=== PATIENT | male | born 1990 | race Caucasian/White ===

== ENCOUNTER 2018-03-30 11:32 | Emergency (ER) | payer OTHER ==
[2018-03-30 11:39] VITALS: BP 120/65; PULSE 87; TEMP 98; BMI 26.6
--- NOTE | 2018-03-30 13:21 | PDOC ---
History of Present Illness - General Chief Complaint: Back Pain Stated Complaint: BACK PAIN Time Seen by Provider: 03/30/18 13:11 History Source: Patient - History of Present Illness Initial Comments: 03/30/18 15:08 Chief complaint: Back injury Patient is a healthy 27-year-old male who pushed something yesterday and now has lower back pain. No numbness or pain in the legs. No incontinence or saddle anesthesia. Patient is ambulatory and took 2 Advil last night, no medication today. GENERAL/CONSTITUTIONAL: No fever, weakness. dizziness HEAD, EYES, EARS, NOSE AND THROAT: No change in vision. No ear pain or discharge. No sore throat. CARDIOVASCULAR: No chest pain RESPIRATORY: No shortness of breath or cough GASTROINTESTINAL: No pain, nausea, vomiting, diarrhea or constipation GENITOURINARY: No dysuria MUSCULOSKELETAL: No neck +back pain SKIN: No rash NEUROLOGIC: No headache, vertigo, loss of consciousness, or loss of sensation. Clinically fingerGENERAL: The patient is awake, alert, and fully oriented, in no acute distress. HEAD: Normal with no signs of trauma. EYES: Pupils equal, round and reactive to light, sclera anicteric, conjunctiva clear. ENT: pharynx: no erythema, no exudate, uvula midline NECK: supple CHEST: clear, nontender, rr ABD: soft, nontender Back: No spinal tenderness, has general lower back tenderness EXTREMITIES: Normal range of motion, no edema. Strength 5 out of 5 bilaterally, neurovascular intact NEUROLOGICAL: Normal speech, normal gait. SKIN: Warm, Dry Past History - Past Medical History Allergies/Adverse Reactions: Allergies Allergy/AdvReac Type Severity Reaction Status Date / Time No Known Allergies Allergy Verified 03/30/18 11:35 Home Medications: Ambulatory Orders Oxycodone HCl/Acetaminophen [Percocet 5-325 mg Tablet] 1 tab PO Q4H #20 tablet MDD 6 03/30/18 CVA: No COPD: No - Suicide/Smoking/Psychosocial Hx Smoking History: Never smoked Have you smoked in the past 12 months: No Information on smoking cessation initiated: No Hx Alcohol Use: No Drug/Substance Use Hx: No Substance Use Type: None *Physical Exam - Vital Signs Last Vital Signs Temp Pulse Resp BP Pulse Ox 98.0 F 87 18 120/65 100 03/30/18 11:37 03/30/18 11:37 03/30/18 11:37 03/30/18 11:37 03/30/18 11:37 Medical Decision Making - Medical Decision Making 03/30/18 15:14 Patient with lower back pain after pushing something yesterday. No numbness, weakness, incontinence or saddle anesthesia. No indication for imaging. We'll give Toradol and reassess and if not better will give a few days of Percocet and orthopedic follow-up. *DC/Admit/Observation/Transfer Diagnosis at time of Disposition: Back injury Qualifiers: Encounter type: initial encounter Qualified Code(s): S39.92XA - Unspecified injury of lower back, initial encounter - Discharge Dispostion Disposition: HOME Condition at time of disposition: Stable Decision to Admit order: No - Prescriptions Prescriptions: Oxycodone HCl/Acetaminophen [Percocet 5-325 mg Tablet] 1 tab PO Q4H #20 tablet MDD 6 - Referrals Referrals: Obinna Boo MD [Staff Physician] - - Patient Instructions Printed Discharge Instructions: DI for Low Back Pain Additional Instructions: No heavy lifting or bending Apply ice to the area 20 minutes every 2 hours for the next 2 days Continue taking Motrin 600 mg every 6 hours for pain. If still in pain he can also take Percocet one tablet every 4 hours. Return to the nearest ER if numbness, weakness, severe pain, problems with urinating or having bowel movements. Call orthopedist today for an appointment for further evaluation Print Language: NIGERIEN - Post Discharge Activity Forms/Work/School Notes: Back to Work
[2018-03-30] MEDS ORDERED: KETOROLAC TROMETHAMINE 60 MG/2 ML VIAL IM ONE (13:27)
[2018-03-30] MEDS ORDERED: KETOROLAC TROMETHAMINE 60 MG/2 ML VIAL ONE (13:30)
== END 2018-03-30 14:24 | disposition home or self-care (01) ==
LOC: JERFT 11:32
PROC: 3E0233Z Introduction of Anti-inflammatory into Muscle, Percutaneous Approach (ICD-10-PCS; principal; 2018-03-30)
DX: S39.82XA Other specified injuries of lower back, initial encounter (principal); X50.9XXA Other and unspecified overexertion or strenuous movements or postures, initial encounter; Y93.89 Activity, other specified; Y92.89 Other specified places as the place of occurrence of the external cause; Y99.8 Other external cause status
CPT/HCPCS: 99281-25

== ENCOUNTER 2019-07-17 10:59 | Emergency (ER) | payer OTHER ==
[2019-07-17 11:09] VITALS: BP 132/71; PULSE 66; TEMP 97.3; BMI 27.3
[2019-07-17] MEDS ORDERED: TETRACAINE 0.5% OPHTH SOLN 2 ML BOTTLE ONE (11:42)
[2019-07-17] MEDS ORDERED: FLUORESCEIN NA 1 EA STRIP ONE (11:42)
--- NOTE | 2019-07-17 12:36 | PDOC ---
History of Present Illness - General Chief Complaint: Foreign Body (FB) Stated Complaint: EYE INJURY AT WORK - History of Present Illness Initial Comments: 07/17/19 12:31 28 y/o M w/o CM presents for evaluation of L eye irritation x 5 days. He states he was sanding a wall when he felt dust enter his eye, since that time he has L eye irritation without changes in vision of systemic symptoms or discharge. Past History - Past Medical History Allergies/Adverse Reactions: Allergies Allergy/AdvReac Type Severity Reaction Status Date / Time No Known Allergies Allergy Verified 07/17/19 11:09 Home Medications: Ambulatory Orders Oxycodone HCl/Acetaminophen [Percocet 5-325 mg Tablet] 1 tab PO Q4H #20 tablet MDD 6 03/30/18 Tobramycin 0.3% Ophth Soln [Tobrex Ophthalmic Solution -] 1 drop OS Q4HWA #1 bottle 07/17/19 CVA: No COPD: No - Immunization History Immunization Up to Date: Yes - Suicide/Smoking/Psychosocial Hx Smoking History: Never smoked Have you smoked in the past 12 months: No Information on smoking cessation initiated: No Hx Alcohol Use: No Drug/Substance Use Hx: No Substance Use Type: None Review of Systems - Review of Systems HEENTM: Yes: See HPI, Tearing. No: Eye Pain, Blurred Vision *Physical Exam - Vital Signs Last Vital Signs Temp Pulse Resp BP Pulse Ox 97.3 F L 66 17 132/71 99 07/17/19 11:05 07/17/19 11:05 07/17/19 11:05 07/17/19 11:05 07/17/19 11:05 - Physical Exam Comments: 07/17/19 12:32 L eye conjuntival injection, PERLL EOMI, tetracaine and floricine using blue light, no CA seen Medical Decision Making - Medical Decision Making 07/17/19 12:33 I will treat this as a corneal abrasion with tobramycin and have pt f/u with optomology. *DC/Admit/Observation/Transfer Diagnosis at time of Disposition: Corneal abrasion - Discharge Dispostion Disposition: HOME Condition at time of disposition: Stable Decision to Admit order: No - Referrals - Patient Instructions Printed Discharge Instructions: Corneal Abrasion, DI for Corneal Abrasion Additional Instructions: Please use the antibiotic drops as directed and without fail, follow up with optomology in 1-2 days for further evaluation and treatment options, return to the emergency room should symptoms worsen. - Post Discharge Activity
== END 2019-07-17 12:47 | disposition home or self-care (01) ==
LOC: JERFT 10:59
DX: S05.02XA Injury of conjunctiva and corneal abrasion without foreign body, left eye, initial encounter (principal); T15.82XA Foreign body in other and multiple parts of external eye, left eye, initial encounter; W29.8XXA Contact with other powered hand tools and household machinery, initial encounter; Y93.H9 Activity, other involving exterior property and land maintenance, building and construction; Y92.118 Other place in children's home and orphanage as the place of occurrence of the external cause; Y99.0 Civilian activity done for income or pay
CPT/HCPCS: 99281-25

== ENCOUNTER 2019-08-20 19:20 | Emergency (ER) | payer OTHER ==
[2019-08-20 19:41] VITALS: BP 140/74; PULSE 73; TEMP 98.7; BMI 29.1
[2019-08-20] MEDS ORDERED: FLUORESCEIN NA 1 EA STRIP ONE (21:32)
[2019-08-20] MEDS ORDERED: TETRACAINE 0.5% OPHTH SOLN 2 ML BOTTLE ONE (21:32)
--- NOTE | 2019-08-20 21:50 | PDOC ---
History of Present Illness - General Chief Complaint: Eye Problem Stated Complaint: PINK EYE Time Seen by Provider: 08/20/19 21:28 - History of Present Illness Initial Comments: 08/20/19 21:45 29-year-old male without comorbidities presents for evaluation of left eye irritation which occurred while cutting some tile. This occurred today. Past History - Past Medical History Allergies/Adverse Reactions: Allergies Allergy/AdvReac Type Severity Reaction Status Date / Time No Known Allergies Allergy Verified 08/20/19 19:38 Home Medications: Ambulatory Orders Oxycodone HCl/Acetaminophen [Percocet 5-325 mg Tablet] 1 tab PO Q4H #20 tablet MDD 6 03/30/18 Tobramycin 0.3% Ophth Soln [Tobrex Ophthalmic Solution -] 1 drop OS Q4HWA #1 bottle 07/17/19 Tobramycin 0.3% Ophth Soln [Tobrex Ophthalmic Solution -] 1 drop OS Q4HWA 5 Days #1 bottle 08/20/19 CVA: No COPD: No - Immunization History Immunization Up to Date: Yes - Psycho Social/Smoking Cessation Hx Smoking History: Never smoked Have you smoked in the past 12 months: No Hx Alcohol Use: No Drug/Substance Use Hx: No Substance Use Type: None Review of Systems - Review of Systems HEENTM: Yes: Eye Pain, Tearing *Physical Exam - Vital Signs Last Vital Signs Temp Pulse Resp BP Pulse Ox 98.7 F 73 18 140/74 98 08/20/19 19:38 08/20/19 19:38 08/20/19 19:38 08/20/19 19:38 08/20/19 19:38 - Physical Exam Comments: 08/20/19 21:46 Tetracaine was instilled in the left eye, the left eye was then stained with floor seen. There are multiple corneal abrasions without indication of foreign body Medical Decision Making - Medical Decision Making 08/20/19 21:46 Tobramycin for corneal abrasions follow-up with ophthalmology in 1 to 2 days without fail Discharge - Discharge Information Problems reviewed: Yes Clinical Impression/Diagnosis: Corneal abrasion Condition: Stable Disposition: HOME - Admission No - Additional Discharge Information Prescriptions: Tobramycin 0.3% Ophth Soln [Tobrex Ophthalmic Solution -] 1 drop OS Q4HWA 5 Days #1 bottle - Follow up/Referral Referrals: Saturnino Fiore MD [Staff Physician] - - Patient Discharge Instructions Additional Instructions: Please use the antibiotic drops as directed. Return to the emergency room for worsening symptoms. Without fail, please follow-up with ophthalmology in 1 to 2 days for further evaluation and treatment options. - Post Discharge Activity
== END 2019-08-20 22:04 | disposition home or self-care (01) ==
LOC: JERFT 19:20
DX: S05.02XA Injury of conjunctiva and corneal abrasion without foreign body, left eye, initial encounter (principal); W31.89XA Contact with other specified machinery, initial encounter; Y93.89 Activity, other specified; Y92.89 Other specified places as the place of occurrence of the external cause; Y99.0 Civilian activity done for income or pay
CPT/HCPCS: 99281-25

== ENCOUNTER 2024-01-30 09:04 | Emergency (ER) | payer OTHER ==
[2024-01-30 09:07] VITALS: RESP 18; TEMP 97.9; BMI 25.4
[2024-01-30] MEDS ORDERED: ACETAMINOPHEN INJECTION 100 ML IVPB ONE (09:34)
[2024-01-30] MEDS ORDERED: FAMOTIDINE 20 MG/50 ML IVPB 20 MG/50 ML MG IVPB ONE (09:34)
[2024-01-30] MEDS: FAMOTIDINE 20 MG/50 ML IVPB 20 MG/50 ML MG IVPB ONE (09:38)
[2024-01-30] MEDS: SODIUM CHLORIDE 0.9% 1000 ML INFUS.BAG IV ONE (09:38)
[2024-01-30] MEDS: ACETAMINOPHEN 1000 MG/100 ML BAG IVPB ONE (09:38)
[2024-01-30 09:47] LABS: BASO % 0.2 % (0-2.0); EOS % 2.6 % (0-4.5); HEMATOCRIT 51.7 % (35.4-49); HEMOGLOBIN 17.2 GM/dL (11.7-16.9); LYMPH % 9.8 % (8-40); MCH 28.9 pg (25.7-33.7); MCHC 33.3 g/dl (32.0-35.9); MEAN CELL VOLUME 86.7 fl (80-96); MEAN PLT VOLUME 8.1 fl (7.5-11.1); MONO % 7.1 % (3.8-10.2); NEUT % 80.3 % (42.8-82.8); PLATELET COUNT 246 10^3/uL (134-434); RBC 5.97 M/mm3 (4.00-5.60); RDW 13.2 % (11.9-15.9); WHITE BLOOD COUNT 9.6 K/mm3 (4.0-10.0)
[2024-01-30 10:35] LABS: POTASSIUM 4.1 mmol/L (3.5-5.1)
[2024-01-30 10:37] LABS: ALBUMIN 4.2 g/dl (3.4-5.0); CALCIUM 9.5 mg/dL (8.5-10.1)
[2024-01-30 10:41] LABS: CREATININE 0.9 mg/dL (0.55-1.3)
[2024-01-30 10:42] LABS: BILIRUBIN,TOTAL 1.1 mg/dL (0.2-1); TOT PROT 7.6 g/dl (6.4-8.2)
[2024-01-30 10:43] LABS: BLOOD UREA NITROGEN 19.8 mg/dL (7-18)
[2024-01-30] MEDS ORDERED: ONDANSETRON 4 MG/2 ML VIAL ONE (10:45)
[2024-01-30] MEDS: ONDANSETRON 4 MG/2 ML VIAL IVPUSH ONE (10:48)
[2024-01-30 13:03] VITALS: BP 111/61; PULSE 73
== END 2024-01-30 11:44 | disposition home or self-care (01) ==
LOC: JER 09:04
PROC: 3E033GC Introduction of Other Therapeutic Substance into Peripheral Vein, Percutaneous Approach (ICD-10-PCS; principal; 2024-01-30)
PROC: 3E033GC Introduction of Other Therapeutic Substance into Peripheral Vein, Percutaneous Approach (ICD-10-PCS; 2024-01-30)
PROC: 3E033NZ Introduction of Analgesics, Hypnotics, Sedatives into Peripheral Vein, Percutaneous Approach (ICD-10-PCS; 2024-01-30)
DX: R11.2 Nausea with vomiting, unspecified (principal); K52.9 Noninfective gastroenteritis and colitis, unspecified; R10.13 Epigastric pain; Z20.822 Contact with and (suspected) exposure to COVID-19
CPT/HCPCS: 0241U-QW; 36415; 80053; 83690; 85025; 93005; 93010; 99284-25; J0131